=== PATIENT | female | born 1955 | race Caucasian/White ===

== ENCOUNTER 2022-05-01 09:29 | Emergency (ER) | payer MEDICAID ==
[~2022-05-01] VITALS: Ht 152.4 cm; Wt 60.0 kg
[2022-05-01] MEDS ORDERED: OXYCODONE HCL/ACETAMINOPHEN 5/325MG TABLET PO ONE (10:15)
[2022-05-01] MEDS ORDERED: OXYC-100 PO (12:37)
[2022-05-01 13:03] VITALS: BP 132/57
== END 2022-05-01 15:44 | disposition home or self-care (01) ==
LOC: ER 09:29
DX: S93.04XA Dislocation of right ankle joint, initial encounter (principal); W18.30XA Fall on same level, unspecified, initial encounter; Y93.89 Activity, other specified; Y92.89 Other specified places as the place of occurrence of the external cause; Y99.8 Other external cause status
CPT/HCPCS: 29515; 73590; 73610; 99284; Z7610